=== PATIENT | male | born 1960 | race Two or more races ===

== ENCOUNTER 2018-06-09 11:36 | Emergency (ER) | payer OTHER ==
[~2018-06-09] VITALS: Ht 170.2 cm; Wt 61.2 kg
[2018-06-09] MEDS ORDERED: LISINOPRIL5 MG ORAL (11:45)
[2018-06-09 12:18] VITALS: BP 128/70
--- NOTE | 2018-06-09 12:45 | Emergency Room Report ---
History of Present Illness General Chief Complaint: Nausea, Vomiting, and Diarrhea Source: Patient Present Illness HPI 58-year-old male with no medical problems presents with epigastric pain, diarrhea, which progressed to vomiting, started about 4-5 days ago, with diarrhea, now that's resolved but has been vomiting, reports pain is achy, intermittent epigastric area. He denies fevers, recent travel, does reports he has a brother with similar symptoms. He was triggered it however in terms of food or anything else. Allergies: Coded Allergies: No Known Allergies (Unverified , 06/09/18) Patient History Past Medical History: see triage record Social History: Reports: smoking, alcohol use Reviewed Nursing Documentation: PMH: Agreed; PSxH: Agreed Nursing Documentation-PMH Past Medical History: No History, Except For Hx Hypertension: Yes Review of Systems All Other Systems: negative except mentioned in HPI Physical Exam Vital Signs Date Time Temp Pulse Resp B/P (MAP) Pulse Ox O2 Delivery O2 Flow Rate FiO2 06/09/18 11:41 98.1 59 20 134/84 98 Room Air Sp02 EP Interpretation: reviewed, normal General Appearance: no apparent distress, alert, non-toxic Head: normocephalic Eyes: bilateral eye normal inspection, bilateral eye PERRL, bilateral eye EOMI ENT: normal ENT inspection, hearing grossly normal, normal pharynx, no angioedema, normal voice, moist mucus membranes Neck: normal inspection, full range of motion, supple, supple/symm/no masses Respiratory: chest non-tender, lungs clear, normal breath sounds, chest symmetrical, palpation of chest normal Cardiovascular #1: normal peripheral pulses, regular rate, rhythm Cardiovascular #2: 2+ radial (R), 2+ radial (L), 2+ dorsalis pedis (R), 2+ dorsalis pedis (L) Gastrointestinal: normal inspection, soft, no mass, no guarding, no rebound, tenderness - Mild epigastric tenderness Rectal: deferred Genitourinary: normal inspection, no CVA tenderness Musculoskeletal: back normal, gait/station normal, normal range of motion, non- tender, no calf tenderness Neurologic: alert, responsive, internal controls analyst III-XII nml as tested, motor strength/tone normal, sensory intact, speech normal Psychiatric: judgement/insight normal, memory normal, mood/affect normal, no suicidal/homicidal ideation Skin: normal color, no rash, warm/dry, normal turgor Lymphatic: no adenopathy Medical Decision Making Diagnostic Impression: Primary Impression: Nausea, vomiting, and diarrhea ER Course Patient was in a hurry so he refused blood work and urinalysis, therefore I do not feel comfortable in evaluating him, and he understands he will leave AGAINST MEDICAL ADVICE understanding the risk of , aortic disease, infection, and I will write a prescription for Cipro, CT scan was not convincing for any acute pathology other than possible nonspecific gastrointestinal infection, will leave AGAINST MEDICAL ADVICE understanding the risks of and untreated infection or inappropriately treated infection. Last Vital Signs Date Time Temp Pulse Resp B/P (MAP) Pulse Ox O2 Delivery O2 Flow Rate FiO2 06/09/18 12:18 98.1 61 18 128/70 100 Room Air Disposition: AGAINST MEDICAL ADVICE Condition: Stable LOU PARKER M.D Jun 09, 2018 12:45
[2018-06-09 13:17] LABS: APPEARANCE,URINE CLEAR; BILIRUBIN, URINE NEGATIVE (NEGATIVE); GLUCOSE, URINE (UA) NEGATIVE (NEGATIVE); KETONES,URINE NEGATIVE (NEGATIVE); LEUKOCYTE ESTERASE ,URINE 1+ (NEGATIVE); NITRITE,URINE NEGATIVE (NEGATIVE); PH,URINE 5 (4.5-8.0); PROTEIN,URINE NEGATIVE (NEGATIVE); UROBILINOGEN,URINE NORMAL MG/DL (0.0-1.0)
[2018-06-09 13:18] LABS: COLOR,URINE YELLOW
--- NOTE | 2018-06-09 13:21 | Diagnostic Imaging Report ---
Indication: Epigastric pain, diarrhea, vomiting Technique: Spiral acquisitions obtained through the abdomen and pelvis. No oral contrast utilized, per emergency room physician request No IV contrast utilized, per referring physician request.. Multiplanar reconstructions were generated. Total dose length product 510.01 mGycm. CTDIvol(s) 9.94 mGy. Dose reduction achieved using automated exposure control Comparison: None Findings: Lack of enteric contrast limits assessment of the GI tract. Normal appendix. Small bowel loops are fluid-filled, prominent but not frankly dilated. Prominent nodes are noted in the mesenteric root. No free or loculated intraperitoneal gas or fluid. Distal esophagus, stomach, duodenum are unremarkable. Lack of IV contrast limits assessment of the solid organs. The liver is mildly enlarged. No gross focal abnormality. The gallbladder, bile ducts, pancreas, spleen, adrenals, kidneys are unremarkable. No retroperitoneal or mesenteric mass or adenopathy. The prostate is prominent. No pelvic mass or adenopathy. The bones demonstrate mild lumbar dextro scoliotic deformity which may be just an artifact of positioning. The included lung bases are clear. Impression: Limited assessment of the GI tract, due to lack of enteric contrast administration Prominent fluid-filled small bowel loops, nonspecific, but consistent with stated clinical history of diarrheal illness. Prominent mesenteric root lymph nodes, likely reactive related to the above Borderline hepatomegaly The CT scanner at [facility] is accredited by the [employer] and the scans are performed using protocols designed to limit radiation exposure to as low as reasonably achievable to attain images of sufficient resolution adequate for diagnostic evaluation.
[2018-06-09] MEDS ORDERED: CIPROFLOXACIN500 M2 ORAL (13:34)
[2018-06-09 14:03] VITALS: BP 127/86
== END 2018-06-09 14:03 | disposition left against medical advice (07) ==
LOC: EMR 13:35
DX: R11.2 Nausea with vomiting, unspecified (principal); R10.13 Epigastric pain; R19.7 Diarrhea, unspecified; I10 Essential (primary) hypertension
CPT/HCPCS: 74176; 81003; 99283

== ENCOUNTER 2018-08-31 19:15 | Emergency (ER) | payer OTHER, SELFPAY ==
[~2018-08-31] VITALS: Ht 167.6 cm; Wt 65.8 kg
[~2018-08-31 19:15] MED LIST: CIPROFLOXACIN500 M2 ORAL; LISINOPRIL5 MG ORAL
--- NOTE | 2018-08-31 19:15 | NUR ---
ER DISCHARGE NOTE: Patient is cleared to be discharged per ERMD, pt is aox4, on room air, with stable vital signs. pt was given dc and prescription instructions, pt was able to verbalize understanding, pt id band removed without complications. pt is able to ambulate with steady gait. pt took all belongings.
[2018-08-31 19:20] VITALS: BP 144/90
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
[2018-08-31 20:15] VITALS: BP 140/89
[2018-08-31] MEDS ORDERED: IBUPROFEN600 MG ORAL (20:19)
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
--- NOTE | 2018-09-01 12:39 | Diagnostic Imaging Report ---
INDICATION: Knee Pain COMPARISON: None 3 views of the left knee were obtained. FINDINGS: No acute fracture, malalignment, or joint effusion are identified. Bones are osteopenic. There is joint space narrowing with marginal osteophyte formation and subchondral sclerosis. There is motion related artifact limiting evaluation. Impression: Negative for acute injury
== END 2018-08-31 20:37 ==
LOC: EMR 19:48
DX: S80.02XA Contusion of left knee, initial encounter (principal); S80.212A Abrasion, left knee, initial encounter; W50.0XXA Accidental hit or strike by another person, initial encounter; Y92.512 Supermarket, store or market as the place of occurrence of the external cause; I10 Essential (primary) hypertension; L30.9 Dermatitis, unspecified; M25.512 Pain in left shoulder
CPT/HCPCS: 99283